=== PATIENT | male | born 1950 | race Caucasian/White ===

== ENCOUNTER 2017-05-13 14:22 | Emergency (ER) | payer MEDICARE ==
[~2017-05-13] VITALS: Ht 175.3 cm; Wt 76.8 kg
[2017-05-13 14:24] VITALS: BP 164/86; PULSE 102; RESP 18; O2SAT 100
--- NOTE | 2017-05-13 15:14 | ED.REPORT ---
HPI-Abd Pain M 40 and Over Date of Service May 13, 2017 ED Provider: Edward Brothers MD Patient is a 67 year old male with a history of diabetes, prostate cancer and hypertension who presents to the ED via EMS complaining of urinary retention since this morning. He reports that he has not voided since 0545 this morning. Patient also complains of constipation. He denies other symptoms at this time. The patient states that he has tried drinking two coffees and prune juice this morning. He reports that since his back surgery two months ago, he has had decreased urination but not decreased frequency. Patient states that he recently stopped taking Flomax since he ran out and has been using the Flomax since his surgery. Nursing Notes Stated Complaint: URINARY RETENTION Chief Complaint: Male Abdominal Pain Nursing Notes Reviewed: Yes Allergies: Coded Allergies: No Known Allergies (Unverified , 05/13/17) Scheduled Tamsulosin (Flomax) 0.4 Mg Capsule 0.4 MG PO DAILY Scheduled PRN Polyethylene Glycol 3350 (Miralax) 17 Gm Powd.pack 17 GM PO HS PRN PRN For Constipation General Time Seen by MD: 14:47 Chief Complaint Unable to urinate Hx Obtained From: Patient Arrived By: Ambulance Sudden in Onset?: Yes Onset Occurred: 5 - 8 hours ago Symptom Duration: Since onset Location: : Suprapubic Quality: Painful Radiation: : Does not radiate Severity: Current: Moderate Recent Healthcare: Recent doctor visit Similar Sx Previous: Yes Past Medical History Past Medical History prostate cancer Reports: Diabetes mellitus, Hypertension Past Surgical History back Smoking History Unknown if Ever Smoker Social History Other Social History: Good social support Ambulatory Status Independent Review of Systems Constitutional: Denies: Chills, Fever Respiratory: Denies: Non-productive cough, Shortness of breath GI: Reports: Constipation, Denies: Abdominal pain, Nausea, Vomiting Male: Reports Urination decreased, Denies Urinary frequency Complete sys rev & neg: except as marked. Skin: Denies Itching, Denies Rash Physical Exam Initial Vital Signs Vital Signs (First) Date Time Temp Pulse Resp B/P Pulse Ox O2 Delivery O2 Flow Rate FiO2 05/13/17 14:24 36.4 102 18 164/86 100 Room Air Initial VS: Reviewed General/Constitutional: Awake, Alert, No acute distress Respiratory / Chest: Atraumatic, Breath sounds NL, Breath sounds = bilat, No respiratory distress Cardiovascular: Heart rate NL, Regular rhythm, Heart sounds NL Abdomen: Atraumatic, Soft, Non-tender Back: Atraumatic, Non-tender Head / Eyes: Atraumatic, Normocephalic, PERRL, EOMI Skin: Atraumatic, Color NL, No rash, Warm, Dry Neurologic: Oriented X3, Speech NL Lower Extremity / Pelvis / MS: Atraumatic, Full range of motion Psychiatric: Affect NL, Mood NL Interpretation & Diagnostics Lab Results Interpretation Test 05/13/17 15:53 Hold Urine Received (Received) Re-Eval/Medical Decision Med Decision/Clinical Course 67-year-old male history of low back surgery and chronic urinary retention presenting with urinary retention. He recently stopped his Flomax 2 days ago. Since then has had urinary retention. Domingo was placed and he had relief of his symptoms. There is 500 mL's pre-Domingo with no postvoid residual. Patient felt much better and requested discharge home. He also requests treatment for his chronic constipation. He is given a prescription for MiraLAX. He will follow up with his primary doctor and urologist. I resumed his Flomax. Return precautions given. Time of Eval: 15:39 Patient Status: Condition improved Re-Evaluation/Progress Note: Patient had an in and out cath and reports feeling much better. Discussed plan for discharge. Patient understands and agrees to plan. All questions were addressed. Counseled Regarding: Diagnosis, Lab results, Need for follow-up, When/why to return to ED Discharge & Departure Primary Impression: Urinary retention Additional Impression: Constipation Constipation type: unspecified constipation type Qualified Code: K59.00 - Constipation, unspecified Disposition: Home Vital Signs - All Vital Signs Date Time Temp Pulse Resp B/P Pulse Ox O2 Delivery O2 Flow Rate FiO2 05/13/17 16:27 36.7 100 158/91 97 Room Air 05/13/17 14:24 36.4 102 18 164/86 100 Room Air )( All Prior VS Reviewed: Yes Condition: Stable Patient Instructions: Constipation (ED) Additional Instructions: You can use Miralax to help with your constipation. Continue taking Flomax as prescribed. Follow up with the referred urologist this week. Return to the emergency department if you develop any new or concerning symptoms. Referrals: Patrick Cisneros MD (PCP) Lata Jones PA-C Attestation Portions of this note were transcribed by Karie Rodriguez. I, Dr. Brothers personally performed the history, physical exam and medical decision-making; I reviewed and confirmed the accuracy of the information in the transcribed note. Signed by: Bladimir Villalobos, 05/13/17. copies to: Patrick Cisneros MD; Lata Jones PA-C, Ben M MD May 13, 2017 15:14 Britta Rodriguez May 13, 2017 15:38
[2017-05-13] MEDS ORDERED: TAMS0.4C98 PO (15:40)
[2017-05-13] MEDS ORDERED: POLY17PO6 PO (15:40)
[2017-05-13 16:27] VITALS: BP 158/91; PULSE 100; O2SAT 97
== END 2017-05-13 16:28 | disposition home or self-care (01) ==
LOC: SED 14:22
DX: R33.9 Retention of urine, unspecified (principal); K59.00 Constipation, unspecified; E11.9 Type 2 diabetes mellitus without complications; I10 Essential (primary) hypertension; Z85.46 Personal history of malignant neoplasm of prostate